=== PATIENT | female | born 2000 | race African-American/Black ===

== ENCOUNTER 2019-08-07 08:29 | Emergency (ER) | payer MEDICAID ==
[~2019-08-07] VITALS: Ht 175.3 cm; Wt 68.0 kg
[2019-08-07] MEDS ORDERED: AZITHROMYCIN 500 MG TABLET PO ONE (11:15)
[2019-08-07] MEDS ORDERED: LIDOCAINE HCL 1% 20ML VIAL (Pyxis) INJ INFIL ONE (11:15)
[2019-08-07] MEDS ORDERED: CEFTRIAXONE SODIUM 250 MG/VIAL IM ONE (11:15)
[2019-08-07 11:24] LABS: CLARITY URINE TURBID (CLEAR); COLOR URINE YELLOW (YELLOW); KETONES URINE 1+ (NEGATIVE); LEUKOCYTE ESTERASE URINE 2+ (NEGATIVE); NITRITE URINE NEGATIVE (NEGATIVE); OCCULT BLOOD URINE 3+ (NEGATIVE); PH URINE 5.5 (4.5-8.0); PROTEIN URINE 1+ (NEGATIVE); SPECIFIC GRAVITY URINE 1.037 (1.005-1.030); UROBILINOGEN URINE 0.2 E.U./dL (0.2-1.0)
[2019-08-07 13:25] VITALS: BP 100/60
[2019-08-11 08:11] LABS: CHLAMYDIA TRACHOMATIS NAA Negative (Negative); NEISSERIA GONORRHOEAE NAA Negative (Negative)
== END 2019-08-07 13:22 | disposition home or self-care (01) ==
LOC: ER 08:29
DX: N72 Inflammatory disease of cervix uteri (principal); N76.0 Acute vaginitis; B37.3 Candidiasis of vulva and vagina
CPT/HCPCS: 81003; 81025; 87086; 87106; 87210; 87491; 87591; 96372; 99283; J0696; J3490